=== PATIENT | male | born 1935 | race Caucasian/White ===

== ENCOUNTER 2018-02-02 20:22 | Inpatient (IN) | payer OTHER, MEDICAID ==
[~2018-02-02] VITALS: Ht 170.2 cm; Wt 78.5 kg
[2018-02-02 20:22] VITALS: BP 125/66
--- NOTE | 2018-02-02 20:22 | NUR ---
PATIENT BIB ALS TO ER BED 4.
--- NOTE | 2018-02-02 20:30 | NUR ---
PT PRESENTS TO ED BIBA FOR BLOOD IN STOOL REPORTED BY [facility]. PT DENIES PAIN, N/V/D. ABDOMEN IS SOFT, NON-TENDER. BOWEL SOUNDS PRESENT X 4 QUADRANTS. PT PLACED IN BED, ER MD AT BEDSIDE. PMH-DEMENTIA, CAD.
[2018-02-02] MEDS ORDERED: ASPI81CT89 PO (20:33)
[2018-02-02] MEDS ORDERED: VITD1000 PO (20:33)
[2018-02-02] MEDS ORDERED: SIMV20TA1 PO (20:33)
[2018-02-02] MEDS ORDERED: DONE10TA10 PO (20:33)
[2018-02-02 20:59] LABS: BASOPHILS # (AUTO) 0.1 K/uL (0.00-0.22); BASOPHILS % (AUTO) 0.6 % (0.0-2.0); EOSINOPHILS # (AUTO) 0.4 K/uL (0-0.4); EOSINOPHILS % (AUTO) 4.1 % (0.0-4.0); HEMATOCRIT 35.6 % (36-52); HEMOGLOBIN 11.5 g/dL (12.0-18.0); LYMPHOCYTES # (AUTO) 2.2 K/uL (2.0-11.5); LYMPHOCYTES % (AUTO) 22.8 % (20.5-51.1); MEAN CORPUSCULAR HEMOGLOBIN 30 pg (27-31); MEAN CORPUSCULAR HGB CONC 32 g/dL (33-37); MEAN CORPUSCULAR VOLUME 91.4 fL (80-94); MONOCYTES % (AUTO) 10.1 % (1.7-9.3); NEUTROPHILS # (AUTO) 6.1 K/uL (1.8-7.7); NEUTROPHILS % (AUTO) 62.4 % (42.2-75.2); PLATELET COUNT (AUTO) 144 K/uL (140-450); RED BLOOD CELL COUNT(AUTO) 3.89 MIL/uL (4.20-6.10); RED CELL DISTRIBUTION WIDTH 13.7 % (11.6-13.7); WHITE BLOOD COUNT (AUTO) 9.7 K/uL (4.8-10.8)
[2018-02-02 21:09] LABS: ANION GAP 11.5 (8-16); CARBON DIOXIDE 28.1 mmol/L (21-32); CHLORIDE 106 mmol/L (98-107); CREATININE 1.4 mg/dL (0.7-1.3); GLUCOSE 105 mg/dL (74-106); POTASSIUM 4.6 mmol/L (3.5-5.1); SODIUM SERUM 141 mmol/L (136-145); UREA NITROGEN, BLOOD 29 mg/dL (7-18)
[2018-02-02 21:13] LABS: PROTHROMBIN TIME 10.5 secs (10.8-13.4)
[2018-02-02 21:15] LABS: ASPARTATE AMINOTRANSFERASE 20 U/L (15-37); TOTAL BILIRUBIN 0.4 mg/dL (0.0-1.0)
[2018-02-02] MEDS ORDERED: NACL 0.9% 1,000 ML IV ONE (21:30)
[2018-02-02] MEDS ORDERED: DOCUSATE SODIUM 100 MG GELCAP PO PRN (21:35)
[2018-02-02] MEDS ORDERED: HYDROcodone/APAP 5/325 MG 1 TAB TAB PO PRN (21:35)
[2018-02-02] MEDS ORDERED: ONDANSETRON 4 MG/2 ML VIAL IM/IVP PRN (21:35)
[2018-02-02] MEDS ORDERED: LORazepam 2 MG/ML VIAL IM/IVP PRN (21:35)
[2018-02-02] MEDS ORDERED: ACETAMINOPHEN 325 MG TAB PO PRN (21:35)
[2018-02-02 22:05] VITALS: BP 144/104
--- NOTE | 2018-02-02 22:05 | NUR ---
REPORT RECEIVED FROM ED NURSE AT BEDSIDE. PT IN STABLE CONDITION. AAOX4. INTRODUCED SELF TO PT. BOARD UPDATED. IV SITE L AC 18G RUNNING D5NS@50ML/HR PATENT AND INTACT. SKIN WARM, DRY, AND INTACT WITH NO OPEN WOUNDS. BED LOCKED IN LOW POSITION. CALL MIMS WITHIN REACH. SAFETY PRECAUTIONS IN PLACE. NO COMPLAINTS OF PAIN. NO SOB.
--- NOTE | 2018-02-02 22:10 | NUR ---
Patient will be admitted to care of DR MORFIN. Admited to TELE. Will go to room 124-A. Belongings list completed. Report to CLAYTON EWING.
[2018-02-02] MEDS ORDERED: PANTOPRAZOLE 40 MG INJ VIAL IVP SCH (22:30)
[2018-02-02 22:38] LABS: CHOL/HDL RATIO 3.5 (1-4.5); PHOSPHORUS 3.5 mg/dL (2.5-4.9); THYROID STIMULATING HORMONE 2.54 uIU/mL (0.34-3.74)
[2018-02-02] MEDS: PANTOPRAZOLE 40 MG INJ VIAL IVP SCH (22:39)
--- NOTE | 2018-02-02 22:39 | NUR ---
PROTONIX GIVEN IVP. PT TOLERATED WELL.
--- NOTE | 2018-02-02 22:45 | NUR ---
PT PULLED OUT HIS IV. CANNULA IS INTACT. WILL PLACE NEW IV LINE.
[2018-02-02] MEDS: DEXT 5% / NACL 0.9% 500 ML IV SCH (23:00)
--- NOTE | 2018-02-02 23:00 | NUR ---
NEW IV PLACED. L WRIST 22G. 3 ATTEMPTS WERE TAKEN. PT TOLERATED WELL.
--- NOTE | 2018-02-02 23:55 | NUR ---
PT PULLED OUT HIS IV AGAIN. NEW IV WILL BE PLACED.
[2018-02-03] VITALS: BP 136/98
--- NOTE | 2018-02-03 01:00 | NUR ---
NEW IV INSERTED L WRIST 22G. 4 ATTEMPTS TAKEN. PT TOLERATED WELL.
[2018-02-03 01:57] LABS: HEMATOCRIT 38.2 % (36-52); HEMOGLOBIN 12.3 g/dL (12.0-18.0)
--- NOTE | 2018-02-03 03:20 | NUR ---
PT AWAKE AND ALERT WATCHING TV. PT IS VERY CONFUSED GETTING OUT OF BED PULLING ON HIS IV LINE. NO S/S OF DISTRESS NOTED. BED ALARM IS ON. BED IS IN LOW POSITION.
[2018-02-03 04:00] VITALS: BP 129/73
--- NOTE | 2018-02-03 05:30 | NUR ---
PT ATTEMPTING TO SLEEP. LAYING RIGHT LATERAL. NO S/S OF DISTRESS NOTED.
--- NOTE | 2018-02-03 07:20 | NUR ---
REPORT GIVEN TO AM NURSE AT BEDSIDE. PT IN STABLE CONDITION.
--- NOTE | 2018-02-03 07:21 | NUR ---
RECEIVED REPORT FROM IMMIGRATION CASE WORKER NURSE. PATIENT LYING DOWN IN BED COMFORTABLY. NO DISTRESS NOTED. DENIES ANY PAIN. AAOX2, CALM, COOPERATIVE, CONFUSED, SKIN COLOR APPROPRIATE TO ETHNICITY, WARM TO TOUCH. SKIN INTACT. IV SITE INTACT, PATENT, AND INFUSING IVF PER MD ORDERS. LUNGS CTA ON ALL LOBES. ABDOMEN SOFT. REVIEWED PLAN OF CARE WITH PATIENT. PATIENT VERBALIZED UNDERSTANDING. SAFETY MEASURES IN PLACE, CALL LIGHT WITHIN REACH. WILL CONTINUE TO MONITOR.
[2018-02-03 07:29] LABS: BASOPHILS % (AUTO) 0.4 % (0.0-2.0); EOSINOPHILS # (AUTO) 0.5 K/uL (0-0.4); EOSINOPHILS % (AUTO) 5.2 % (0.0-4.0); LYMPHOCYTES % (AUTO) 30.3 % (20.5-51.1); MEAN CORPUSCULAR HEMOGLOBIN 30 pg (27-31); MEAN CORPUSCULAR HGB CONC 33 g/dL (33-37); MEAN CORPUSCULAR VOLUME 91.3 fL (80-94); MONOCYTES % (AUTO) 9.8 % (1.7-9.3); NEUTROPHILS # (AUTO) 5.3 K/uL (1.8-7.7); NEUTROPHILS % (AUTO) 54.3 % (42.2-75.2); PLATELET COUNT (AUTO) 152 K/uL (140-450); RED BLOOD CELL COUNT(AUTO) 4.05 MIL/uL (4.20-6.10); RED CELL DISTRIBUTION WIDTH 13.3 % (11.6-13.7); WHITE BLOOD COUNT (AUTO) 9.7 K/uL (4.8-10.8)
[2018-02-03 08:00] VITALS: BP 132/74
[2018-02-03 08:09] LABS: ANION GAP 13.7 (8-16); CARBON DIOXIDE 26.4 mmol/L (21-32); CHLORIDE 108 mmol/L (98-107); CREATININE 1.2 mg/dL (0.7-1.3); GLUCOSE 89 mg/dL (74-106); POTASSIUM 4.1 mmol/L (3.5-5.1); SODIUM SERUM 144 mmol/L (136-145); UREA NITROGEN, BLOOD 21 mg/dL (7-18)
[2018-02-03] MEDS: DONEPEZIL 10 MG TAB PO SCH (09:00)
[2018-02-03] MEDS: CHOLECALCIFEROL 1,000 IU TAB PO SCH (09:00)
[2018-02-03] MEDS: PANTOPRAZOLE 40 MG INJ VIAL IVP SCH ×2 (09:12→20:07)
[2018-02-03] MEDS: DEXT 5% / NACL 0.9% 500 ML IV SCH ×2 (09:13→18:34)
--- NOTE | 2018-02-03 09:25 | NUR ---
PATIENT LYING DOWN IN BED SLEEPING, AROUSABLE BY VOICE. SCHEDULED MEDICATIONS DUE GIVEN. WILL CONTINUE TO MONITOR.
[2018-02-03] MEDS ORDERED: BOWEL EVACUANT DRINK 4,000 ML PDS PO SCH (10:30)
--- NOTE | 2018-02-03 10:30 | NUR ---
PATIENT INTERMITTENT CONFUSION, HOWEVER, COOPERATIVE. SAFETY MEASURES IN PLACE, CALL LIGHT WITHIN REACH. WILL CONTINUE TO MONITOR.
[2018-02-03 12:00] VITALS: BP 125/77
--- NOTE | 2018-02-03 12:30 | NUR ---
PATIENT SITTING IN BED WITH LUNCH TRAY IN FRONT. NO DISTRESS NOTED. CONDITION UNCHANGED. WILL CONTINUE TO MONITOR.
--- NOTE | 2018-02-03 15:12 | NUR ---
PATIENT LYING DOWN IN BED SLEEPING, AROUSABLE BY VOICE. CONDITION UNCHANGED. WILL CONTINUE TO MONITOR.
[2018-02-03 16:00] VITALS: BP 133/82
--- NOTE | 2018-02-03 18:00 | NUR ---
ASSISTED HR SYSTEMS ANALYST IN CLEANING PATIENT. WILL CONTINUE TO MONITOR.
--- NOTE | 2018-02-03 19:18 | NUR ---
GAVE REPORT TO JOB FORWARDER NURSE FOR CONTINUITY OF CARE. PATIENT IN STABLE CONDITION.
--- NOTE | 2018-02-03 19:19 | NUR ---
REPORT RECEIVED FROM AM NURSE AT BEDSIDE. PT IN STABLE CONDITION. AAOX2 BUT VERY CONFUSED. PT HAS NO COMPLAINTS OF PAIN. NO SOB. IV SITE L WRIST 22G RUNNING D5NS@50ML/HR PATENT AND INTACT. PT NPO EXCEPT FOR MEDS AND HAS AN ORDER FOR COLONOSCOPY TOMORROW. DRINKING GOLYTELY. SKIN WARM, DRY, AND INTACT WITH NO OPEN WOUNDS. BED ALARM IS ON. BED LOCKED IN LOW POSITION. CALL MIMS WITHIN REACH. SAFETY PRECAUTIONS IN PLACE.
[2018-02-03 20:00] VITALS: BP 132/72
[2018-02-03] MEDS: SIMVASTATIN 20 MG TAB PO SCH (20:07)
--- NOTE | 2018-02-03 20:07 | NUR ---
ZOCOR GIVEN PO. PROTONIX GIVEN IVP. PT TOLERATED WELL.
--- NOTE | 2018-02-03 22:30 | NUR ---
PT AWAKE AND ALERT WATCHING TV IN SUPINE POSITION. NO S/S OF DISTRESS NOTED. BED LOCKED IN LOW POSITION. CALL MIMS WITHIN REACH. PT MUST BE REORIENTED OFTEN. VERY CONFUSED. WILL CONTINUE TO MONITOR.
[2018-02-04] VITALS: BP 103/74
--- NOTE | 2018-02-04 00:30 | NUR ---
PT AWAKE AND ALERT WATCHING TV TRYING TO SLEEP. NO S/S OF DISTRESS NOTED. WILL CONTINUE TO MONITOR.
--- NOTE | 2018-02-04 03:15 | NUR ---
PT AWAKE AND ALERT WATCHING TV SITTING UP IN BED. NO S/S OF DISTRESS NOTED. ENCOURAGING PT TO DRINK MUCH GOLYTELY HE CAN.
[2018-02-04 04:00] VITALS: BP 150/82
[2018-02-04] MEDS: DEXT 5% / NACL 0.9% 500 ML IV SCH (05:00)
--- NOTE | 2018-02-04 06:15 | NUR ---
PT AWAKE AND ALERT WATCHING TV. NO S/S OF DISTRESS NOTED. WILL CONTINUE TO MONITOR.
--- NOTE | 2018-02-04 07:05 | NUR ---
REPORT GIVEN TO AM NURSE AT BEDSIDE. PT IN STABLE CONDITION.
--- NOTE | 2018-02-04 07:06 | NUR ---
RECEIVED REPORT FROM MASTER SHEET CLERK NURSE. PATIENT LYING DOWN IN BED COMFORTABLY. NO DISTRESS NOTED. DENIES ANY PAIN. AAOX1, CALM, COOPERATIVE, CONFUSED, SKIN COLOR APPROPRIATE TO ETHNICITY, WARM TO TOUCH. SKIN INTACT. IV SITE INTACT, PATENT, AND ON INFUSING IVF PER MD ORDERS. LUNGS CTA ON ALL LOBES. ABDOMEN SOFT. REVIEWED PLAN OF CARE WITH PATIENT. PATIENT VERBALIZED UNDERSTANDING. SAFETY MEASURES IN PLACE, CALL LIGHT WITHIN REACH. WILL CONTINUE TO MONITOR.
[2018-02-04 07:45] LABS: BASOPHILS # (AUTO) 0.1 K/uL (0.00-0.22); BASOPHILS % (AUTO) 0.8 % (0.0-2.0); EOSINOPHILS # (AUTO) 0.4 K/uL (0-0.4); EOSINOPHILS % (AUTO) 4.2 % (0.0-4.0); HEMATOCRIT 40.8 % (36-52); HEMOGLOBIN 13.5 g/dL (12.0-18.0); LYMPHOCYTES # (AUTO) 2.5 K/uL (2.0-11.5); LYMPHOCYTES % (AUTO) 24.4 % (20.5-51.1); MEAN CORPUSCULAR HEMOGLOBIN 30 pg (27-31); MEAN CORPUSCULAR HGB CONC 33 g/dL (33-37); MEAN CORPUSCULAR VOLUME 90.5 fL (80-94); MONOCYTES # (AUTO) 0.9 K/uL (0.8-1.0); MONOCYTES % (AUTO) 9.1 % (1.7-9.3); NEUTROPHILS # (AUTO) 6.2 K/uL (1.8-7.7); NEUTROPHILS % (AUTO) 61.5 % (42.2-75.2); PLATELET COUNT (AUTO) 176 K/uL (140-450); RED BLOOD CELL COUNT(AUTO) 4.51 MIL/uL (4.20-6.10); RED CELL DISTRIBUTION WIDTH 13.7 % (11.6-13.7); WHITE BLOOD COUNT (AUTO) 10.1 K/uL (4.8-10.8)
[2018-02-04 08:00] VITALS: BP 155/80
[2018-02-04 08:28] LABS: ANION GAP 13.4 (8-16); CARBON DIOXIDE 27.6 mmol/L (21-32); CHLORIDE 105 mmol/L (98-107); CREATININE 1.1 mg/dL (0.7-1.3); GLUCOSE 98 mg/dL (74-106); SODIUM SERUM 142 mmol/L (136-145); UREA NITROGEN, BLOOD 11 mg/dL (7-18)
[2018-02-04 08:33] LABS: MAGNESIUM 2.1 mg/dL (1.8-2.4); PHOSPHORUS 2.5 mg/dL (2.5-4.9)
[2018-02-04] MEDS: CHOLECALCIFEROL 1,000 IU TAB PO SCH (08:49)
[2018-02-04] MEDS: DONEPEZIL 10 MG TAB PO SCH (08:49)
[2018-02-04] MEDS: PANTOPRAZOLE 40 MG INJ VIAL IVP SCH ×2 (08:49→21:13)
--- NOTE | 2018-02-04 08:57 | NUR ---
PT AT BEDSIDE WORKING WITH PATIENT. PATIENT IS CONFUSED. SCHEDULED MEDICATIONS DUE GIVEN. WILL CONTINUE TO MONITOR.
--- NOTE | 2018-02-04 09:15 | NUR ---
DR. COLBY CALLED ON PHONE AND READ COLONOSCOPY RESULTS FROM [facility] TO HIM. PER DR. COLBY, CANCEL COLONOSCOPY SCHEDULED FOR TODAY AND PATIENT CAN BE DISCHARGED HOME WITH RECOMMENDATION OF FIBER SUPPLEMENT. WILL NOTIFY DR. CRUMP REGARDING DR. COLBY RECOMMENDATIONS.
--- NOTE | 2018-02-04 10:21 | NUR ---
PATIENT HAS BEEN SCREENED AND CATEGORIZED MODERATE NUTRITION RISK. PATIENT WILL BE SEEN WITHIN 3-5 DAYS OF ADMISSION. 02/05/18 02/07/[address]
--- NOTE | 2018-02-04 11:00 | NUR ---
PATIENT CONFUSED AND CONTINUES TO TRY TO LEAVE ROOM. PATIENT SAYS HE WANTS TO GO BACK HOME. MD AT BEDSIDE TALKING WITH PATIENT. PATIENT TO STAY ONE MORE NIGHT. WILL CONTINUE TO MONITOR.
[2018-02-04 12:00] VITALS: BP 130/82
[2018-02-04] MEDS: NACL 0.9% 1,000 ML IV SCH (13:00)
--- NOTE | 2018-02-04 13:27 | NUR ---
PATIENT SITTING DOWN IN BED WATCHING TV. REMAINS CONFUSED AND TRIES TO LEAVE ROOM. WILL CONTINUE TO MONITOR.
--- NOTE | 2018-02-04 15:00 | NUR ---
PATIENT SITTING IN BED. CONFUSED. CONTINUES TO TRY AND LEAVE ROOM. REORIENTATION TO DATE, TIME PLACE, PROVIDED. PATIENT VERBALIZED UNDERSTANDING. REINFORCEMENT. NEEDED. SAFETY MEASURES IN PLACE, CALL LIGHT WITHIN REACH. WILL CONTINUE TO MONITOR .
--- NOTE | 2018-02-04 18:00 | NUR ---
PATIENT SITTING IN BED WITH DINNER IN FRONT. NO DISTRESS NOTED. DENIES ANY PAIN. CONDITION UNCHANGED. WILL CONTINUE TO MONITOR.
--- NOTE | 2018-02-04 19:30 | NUR ---
GAVE REPORT TO [place] ATTENDANT NURSE. PATIENT IN STABLE CONDITION.
--- NOTE | 2018-02-04 19:30 | NUR ---
REPORT RECEIVED FROM KATHARINE ARNOLD DAYSHIFT NURSE AT BEDSIDE FOR CONTINUITY OF CARE, PT IN STABLE CONDITION.
--- NOTE | 2018-02-04 21:00 | NUR ---
PT IS A PLEASANT 82 YR OLD MALE AOX1 ALERT WITH CONFUSION. PT HAS NO S/S OF PAIN OR DISTRESS NOTED. PT WAS ABLE TO AMBULATE INDEPENDENTLY WITH STANDBY ASSIST/ PT DID AMBULATE TO TOILET AND HAD A BM. PT SAID THAT HE HAD SOME BLOOD WITH HIS BM. PT INSTRUCTED TO LET PRIMARY NURSE CHECK HIM AND BM NEXT TIME HE HAS ONE. NO BLOOD NOTED ON BUTTOCKS OR ANUS AFTER PT WENT TO TOILET. V/S FOLLOWS T 98.1 P 102 R 20 B/P 145/93 02 96% ON R/A. PT GIVEN ALL MEDS DUE AT THIS TIME, ZOCOR AND PROTONIX. PT RESTLESS IN BED AND NEEDED TO BE REDIRECTED CONCERNING WHERE THE TOILET AND HIS BED ARE. PT IS ALERT AND UNDERSTANDS THAT HE IS AT A HOSPITAL BUT IS GETTING CONFUSED ABOUT HIS SURROUNDINGS. PT HAS BEEN ABLE TO BE REDIRECTED. PT WILL CONTINUE TO BE CLOSELY MONITORED FOR SAFETY.
[2018-02-04] MEDS: SIMVASTATIN 20 MG TAB PO SCH (21:13)
[2018-02-04 21:51] LABS: APPEARANCE,URINE CLEAR (CLEAR); BILIRUBIN,URINE NEGATIVE (NEGATIVE); BLOOD, URINE NEGATIVE (NEGATIVE); COLOR,URINE YELLOW (YELLOW); LEUKOCYTE ESTERASE ,URINE NEGATIVE (NEGATIVE); NITRITE, URINE NEGATIVE (NEGATIVE); UGLUCOSE NEGATIVE (NEGATIVE)
[2018-02-05] VITALS: BP 136/79
--- NOTE | 2018-02-05 00:30 | NUR ---
PT UP AND DOWN TO TOILET X2, HE HAD 1 LOOSE STOOL WITH NO BLOODY DISCHARGE NOTED. PT REORIENTED TO TIME AND PLACE. PT REQUESTED SNACK AND WAS GIVEN JUICE AND CRACKERS, AFTERWARD PT AGAIN AMBULATED TO TOILET. V/S FOLLOWS T 97.7 P 67 R 20 B/P 136/79 02 95% WITH R/A.
--- NOTE | 2018-02-05 02:13 | NUR ---
PT GOT UP FROM BED AND WENT TOWARD BATHROOM BUT ENDED UP PEEING ON FLOOR NEXT TO TOILET. AREA AND PT CLEANED UP PROVIDED NEW LINENS AND THEN MADE COMFORTABLE IN BED. PT REORIENTED TO URINAL AND REMINDED TO USE URINAL IF HE CANT FIND TOILET.
[2018-02-05 06:20] LABS: FOLIC ACID 15.1 ng/mL (>3.0)
--- NOTE | 2018-02-05 07:30 | NUR ---
GAVE REPORT TO RADHA ARNOLD DAYSHIFT NURSE AT BEDSIDE FOR CONTINUITY OF CARE, PT IN STABLE CONDITION.
--- NOTE | 2018-02-05 07:30 | NUR ---
PATIENT WAS AWAKE, CONFUSED OF WHERE HE WAS, REORIENTED PATIENT TO ROOM AND STAFF. RESPIRATION EVEN, UNLABOR ON ROOM AIR. SKIN DRY AND WARM. IV PATENT AND INTACT. DENIED PAIN AT THIS TIME. PLAN OF CARE WAS DISCUSSED WITH PATIENT. BED AT LOW POSITION, SIDE RAILS UP. CALL LIGHT WITHIN REACH
[2018-02-05 08:00] VITALS: BP 143/71
[2018-02-05 08:22] LABS: BASOPHILS % (AUTO) 0.5 % (0.0-2.0); EOSINOPHILS # (AUTO) 0.4 K/uL (0-0.4); EOSINOPHILS % (AUTO) 4.2 % (0.0-4.0); HEMATOCRIT 38.3 % (36-52); HEMOGLOBIN 12.5 g/dL (12.0-18.0); LYMPHOCYTES % (AUTO) 22.8 % (20.5-51.1); MEAN CORPUSCULAR HEMOGLOBIN 29 pg (27-31); MEAN CORPUSCULAR HGB CONC 33 g/dL (33-37); MEAN CORPUSCULAR VOLUME 90.4 fL (80-94); MONOCYTES # (AUTO) 0.9 K/uL (0.8-1.0); MONOCYTES % (AUTO) 9.8 % (1.7-9.3); NEUTROPHILS # (AUTO) 5.6 K/uL (1.8-7.7); NEUTROPHILS % (AUTO) 62.7 % (42.2-75.2); PLATELET COUNT (AUTO) 161 K/uL (140-450); RED BLOOD CELL COUNT(AUTO) 4.24 MIL/uL (4.20-6.10); RED CELL DISTRIBUTION WIDTH 13.6 % (11.6-13.7); WHITE BLOOD COUNT (AUTO) 8.9 K/uL (4.8-10.8)
[2018-02-05] MEDS ORDERED: PANT40EC PO (08:53)
[2018-02-05] MEDS: NACL 0.9% 1,000 ML IV SCH (09:00)
[2018-02-05] MEDS: DONEPEZIL 10 MG TAB PO SCH (09:23)
[2018-02-05] MEDS: PANTOPRAZOLE 40 MG INJ VIAL IVP SCH (09:23)
[2018-02-05] MEDS: CHOLECALCIFEROL 1,000 IU TAB PO SCH (09:23)
--- NOTE | 2018-02-05 09:30 | NUR ---
PATIENT WAS AWAKE, SITTING ON BED. RESPIRATION EVEN, UNLABOR ON ROOM AIR. MEDS WERE GIVEN PER ORDER. NO DISTRESS NOTED AT THIS TIME. CALL LIGHT WITHIN REACH
[2018-02-05 09:59] LABS: ANION GAP 14.4 (8-16); CARBON DIOXIDE 25.5 mmol/L (21-32); CHLORIDE 106 mmol/L (98-107); CREATININE 1.3 mg/dL (0.7-1.3); GLUCOSE 89 mg/dL (74-106); POTASSIUM 3.9 mmol/L (3.5-5.1); SODIUM SERUM 142 mmol/L (136-145); UREA NITROGEN, BLOOD 14 mg/dL (7-18)
[2018-02-05] MEDS ORDERED: INFLUENZA VIRUS VACCINE QUAD 0.5 ML SYR IMVAC PRN (10:10)
[2018-02-05] MEDS ORDERED: PNEUMOCOCCAL VACCINE 23 MCG/0.5 ML VIAL IMVAC SCH (10:25)
--- NOTE | 2018-02-05 10:30 | NUR ---
DAUGHTER PILY WAS MADE AWARE OF PATIENT'S DISCHARGE. ALL QUESTIONS WERE ANSWERED
--- NOTE | 2018-02-05 11:21 | NUR ---
DISCHARGE INSTRUCTION AND PRESCRIPTION WAS GIVEN AND EXPLAINED TO CELE, VISUAL DISPLAY MANAGER. CELE VERBALIZED UNDERSTANDING. PRESCRIPTION WAS ALSO FAX TO [facility] AT [phone]. IV WAS REMOVED. CATHETER INTACT, BLEEDING WAS CONTROLLED. FLU VAC AND PNEUMONIA VAC WERE GIVEN PER ORDER. ID BAND WAS REMOVED. PATIENT WAS ESCORTED OUT IN WHEELCHAIR BY STAFF. ALL BELONGINGS WERE TAKEN WITH THE PATIENT. PATIENT IS STABLE AT THIS TIME
== END 2018-02-05 11:27 | disposition home or self-care (01) | DRG 377 ==
LOC: MED 20:22 → MTU 21:31
PROVIDERS: ADMIT General Practice; ATTEND General Practice
PROC: 3E02340 Introduction of Influenza Vaccine into Muscle, Percutaneous Approach (ICD-10-PCS; principal; 2018-02-05)
PROC: 3E0234Z Introduction of Serum, Toxoid and Vaccine into Muscle, Percutaneous Approach (ICD-10-PCS; 2018-02-05)
DX: K29.01 Acute gastritis with bleeding (principal); N17.0 Acute kidney failure with tubular necrosis; E44.0 Moderate protein-calorie malnutrition; K64.4 Residual hemorrhoidal skin tags; D64.9 Anemia, unspecified; G30.9 Alzheimer's disease, unspecified; F02.80 Dementia in other diseases classified elsewhere, unspecified severity, without behavioral disturbance, psychotic disturbance, mood disturbance, and anxiety; Z71.3 Dietary counseling and surveillance; Z23 Encounter for immunization; I25.10 Atherosclerotic heart disease of native coronary artery without angina pectoris; Z95.5 Presence of coronary angioplasty implant and graft; R73.03 Prediabetes; E78.5 Hyperlipidemia, unspecified; E78.00 Pure hypercholesterolemia, unspecified; Z68.27 Body mass index [BMI] 27.0-27.9, adult; E86.0 Dehydration
CPT/HCPCS: 36415; 71045; 80048; 80053; 81003; 82607; 82728; 82746; 83036; 83540; 83690; 83735; 84100; 84134; 84443; 85018; 85025; 85045; 85610; 85730; 86886; 86900; 86901; 87081; 90658; 90732; 93005; 99285; C9113; J7030; J7042

== ENCOUNTER 2018-04-15 23:21 | Emergency (ER) | payer OTHER, MEDICAID ==
[~2018-04-15] VITALS: Ht 177.8 cm; Wt 70.3 kg
[~2018-04-15 23:21] MED LIST: ASPI-1718 PO; DONE10TA10 PO; PANT40EC PO; SIMV20TA1 PO; VITD1000 PO
--- NOTE | 2018-04-15 23:21 | NUR ---
PT DUNCAN RIVERA. TAKEN TO BED 12
[2018-04-15 23:23] VITALS: BP 148/68
--- NOTE | 2018-04-15 23:50 | NUR ---
PT TO [facility]O SONG FROM [facility] FOR CONDOM CATHETER CHANGE. NO S/S OF INFECTION NOTED. PT PLACED INTO BED, PENDING MD WILDER.
--- NOTE | 2018-04-15 23:56 | NUR ---
CONDOM CATHETER CHANGED. PT TOLERATED PROCEDURE WELL.
--- NOTE | 2018-04-16 01:15 | NUR ---
Patient discharged with v/s stable. Written and verbal after care instructions given and explained. Patient verbalized understanding. Ambulance Transport with to long-term. All questions addressed prior to discharge. Advised to follow up with PMD.
--- NOTE | 2018-04-16 01:20 | NUR ---
PT TAKEN BY [facility] BACK TO [facility]
[2018-04-16 01:30] VITALS: BP 144/71
== END 2018-04-16 01:15 | disposition home or self-care (01) ==
LOC: MED 23:21
DX: T83.098A Other mechanical complication of other urinary catheter, initial encounter (principal); I25.10 Atherosclerotic heart disease of native coronary artery without angina pectoris; F03.90 Unspecified dementia, unspecified severity, without behavioral disturbance, psychotic disturbance, mood disturbance, and anxiety; Z79.82 Long term (current) use of aspirin; Z79.899 Other long term (current) drug therapy
CPT/HCPCS: 99283